=== PATIENT | male | born 1955 | race Hispanic/Latino ===

== ENCOUNTER 2017-07-12 10:23 | Day surgery (SDC) | payer OTHER ==
[~2017-07-12 10:23] MED LIST: NACL 0.9% 1000 ML 1,000 ML IV SCH; PEPCID PO NR; SUBLIMAZE IV NR; VERSED IV NR
[2017-07-12] MEDS ORDERED: ADRENALIN IV ONE ×2 (10:30→13:43)
--- NOTE | 2017-07-12 11:35 | Anesthesia Consultation ---
Anesthesia Consult and Med Hx Date of service: 07/12/17 - Airway Anesthetic Teeth Evaluation: Good ROM Head & Neck: Adequate Mental/Hyoid Distance: Adequate Mallampati Class: Class II Intubation Access Assessment: Probably Good - Pulmonary Exam CTA: Yes - Cardiac Exam Cardiac Exam: RRR - Pre-Operative Health Status ASA Pre-Surgery Classification: ASA3 Proposed Anesthetic Plan: General Nerve Block: IS - Pulmonary Hx Smoking: Yes (STOPPED X 35 YRS- 1/2PPS X 5 YRS) Hx Sleep Apnea: No (TERESSA PRE SCREEN HIGH RISK) - Cardiovascular System Hx Hypertension: Yes (X 4 YRS) Hx Heart Attack/AMI: Yes (28 YRS AGO) Hx Angina: No Hx Pacemaker: Yes (DUE TO SSS AND SYNCOPE) - Central Nervous System Hx Seizures: Yes (x1 after getting penicillin) Hx Back Pain: Yes (NECK PAIN) - Endocrine Hx Renal Disease: No Hx Insulin Dependent Diabetes: No - Other Systems Hx Cancer: No Hx Obesity: Yes
--- NOTE | 2017-07-12 11:37 | Anesthesia Day of Surgery ---
Anesthesia Day of Surgery - Day of Surgery Patient Examined: Yes Patient H&P Reviewed: Yes Patient is NPO: Yes Beta Blockers: Yes Cardiac Clearance: Yes
[2017-07-12] MEDS ORDERED: MARCAINE 0.5% 30 ML INFILTRATI ONE (12:06)
[2017-07-12] MEDS ORDERED: XYLOCAINE 1% 20 mL ONE (12:06)
[2017-07-12] MEDS ORDERED: DECADRON ONE (12:06)
[2017-07-12] MEDS ORDERED: DILAUDID ONE ×2 (12:29→16:08)
[2017-07-12] MEDS ORDERED: XYLOCAINE MPF 2% ONE (12:30)
[2017-07-12] MEDS ORDERED: DIPRIVAN 10 MG/ML IV ONE (12:30)
[2017-07-12] MEDS ORDERED: CLEOCIN 900 MG/50 mL 900 MG/50 ML BAG IV ONE (12:36)
[2017-07-12] MEDS ORDERED: GARAMYCIN/NS 80 MG/100 ML 100 ML IV ONE (13:00)
[2017-07-12] MEDS ORDERED: GARAMYCIN/NS 80 MG/100 ML 100 ML IV SCH (13:00)
[2017-07-12] MEDS ORDERED: GARAMYCIN 80 MG in NACL 0.9% 100 ML IV ONE (13:00)
[2017-07-12] MEDS ORDERED: NACL 0.9% IR ONE (13:43)
[2017-07-12] MEDS ORDERED: DILAUDID IV PRN (15:00)
[2017-07-12] MEDS ORDERED: ZOFRAN ONE (15:22)
[2017-07-12] MEDS: DILAUDID IV PRN ×2 (16:00→16:10)
--- NOTE | 2017-07-12 16:20 | Procedure Note ---
Date of procedure: 07/12/17 Pre-op diagnosis: Left shoulder rotator cuff tear Post-op diagnosis: same Procedure: Left shoulder manipulation under anesthesia, rotator cuff repair, subacromial decompression, biceps tenolysis Anesthesia: GETA, local Surgeon: KAPIL GUIDO III (Optician: Young Salinas) Estimated blood loss: minimal Pathology: none Condition: stable Disposition: PACU
[2017-07-12] MEDS ORDERED: TYLENOL PO PRN (16:24)
[2017-07-12] MEDS ORDERED: MOTRIN PO PRN (16:24)
[2017-07-12] MEDS ORDERED: PERCOCET 5/325 PO PRN (16:24)
[2017-07-12 16:35] VITALS: BP 122/70
--- NOTE | 2017-07-12 18:19 | Operative Report ---
PREOPERATIVE DIAGNOSIS: Left shoulder rotator cuff repair with adhesive capsulitis. POSTOPERATIVE DIAGNOSIS: Left shoulder rotator cuff repair with adhesive capsulitis. PROCEDURE: Left shoulder manipulation under anesthesia followed by left diagnostic shoulder arthroscopy with rotator cuff repair and subacromial decompression, biceps tenolysis and limited intra-articular debridement with lysis of adhesions. SURGEON: Seth Giron III, M.D. SAW HANDLE ASSEMBLER: . ANESTHESIA: General with local interscalene block. DESCRIPTION OF PROCEDURE: The patient was seen in preoperative holding area where the consent was reviewed. Surgery was discussed. The left shoulder was marked and signed and all questions were answered. The patient was taken back to the operating room theater and put under general anesthesia by the culture manager. The patient was positioned in the beach chair position. The left arm was prepped and draped in the usual manner for a shoulder arthroscopy. Timeout was completed and a standard posterior intraarticular portal was made. Diagnostic arthroscopy was done viewing the tear of the supraspinatus, fraying of the long head of the biceps. Infraspinatus and inferior glenohumeral ligament were all intact. A standard anterior portal was placed under direct visualization. Shaver was used to clear up the intraarticular space of the frayed superior and posterior labrum. Arthrocare wand was used to release the torn long head of the biceps tendon at the insertion of the superior glenoid. Arthrocare wand was also used to release the rotator interval between the subscapularis and supraspinatus. Scope was then moved to the subacromial space where the bursitis was removed with a shaver and then Arthrocare wand was used to reveal the bone spur on the anterolateral aspect of the acromion. The bare footprint of the supraspinatus was viewed from the subacromial space and the rotator cuff tendon was retracted to the mid humeral head. Bur was used to complete the subacromial decompression flattening of the subacromial space and removing the bony spur. Attention was then turned to the rotator cuff tendon. The supraspinatus footprint was exposed with soft tissue using the wand and then taken down to a bleeding bone using the shaver. Two 24.5 mm PEEK Healicoil anchors with Ultratape were placed through an accessory portal off the edge of the acromion and then the Ultratape was then passed through the rotator cuff from the lateral portals, which there were 2, one off the anterior edge of the acromion and the other off the middle aspect of the acromion. After all four Ultratapes were passed through the tendon tear two 5.5 mm Multifix anchors were used to take the Ultratape and create a double row repair inserting them on the lateral aspect of the humerus. After the double row repair, there was excellent coverage of the proximal humerus and good compression over the footprint of the supraspinatus tear. As noted before, the long head of the biceps was torn and frayed and was released at the beginning of the case from the intraarticular using Arthrocare wand. The state of the tendon was not adequate to incorporate it into repair or tenodese it at the level of the bicipital groove. Pictures were taken showing the final repair. All instruments were removed. Sponge and instrument count were correct at the end of the case. A 3-0 Monocryl was used in subcuticular fashion followed by Steri-Strips, Adaptic, 4 x 4s, ABDs and Medipore tape. The patient was placed in abduction sling and a cold unit was applied. The patient was transferred from the operating room table to the hospital bed and taken to PACU under the care of anesthesia in stable condition. The patient will follow up in 1 week time. JOB# [id number] ASTON/MIRZA
== END 2017-07-12 10:24 | disposition home or self-care (01) ==
LOC: OR 10:23
PROVIDERS: ATTEND Orthopaedic Surgery Sports Medicine
DX: S46.012A Strain of muscle(s) and tendon(s) of the rotator cuff of left shoulder, initial encounter (principal); M75.52 Bursitis of left shoulder; M24.112 Other articular cartilage disorders, left shoulder; I25.2 Old myocardial infarction; E66.9 Obesity, unspecified; Z68.33 Body mass index [BMI] 33.0-33.9, adult; Z87.891 Personal history of nicotine dependence; Z95.0 Presence of cardiac pacemaker; X58.XXXA Exposure to other specified factors, initial encounter; Y93.89 Activity, other specified; Y92.89 Other specified places as the place of occurrence of the external cause
CPT/HCPCS: 29822; 29826; 29827; C1713; J0171; J1100; J1170; J1580; J2250; J2405; J2704; J3010; J7030; L1830; A4217